=== PATIENT | female | born 1975 | race Caucasian/White ===

== ENCOUNTER 2016-12-31 05:57 | Emergency (ER) | payer OTHER ==
--- NOTE | 2016-12-31 07:35 | RAD ---
EXAMINATION : CLAVICLE RIGHT HISTORY: Right clavicle pain. Injury. COMPARISONS: 09/16/2014 FINDINGS: No displaced fracture is identified. The acromioclavicular and sternoclavicular joint spaces are maintained. No soft tissue abnormality seen. IMPRESSION: Negative two-view right clavicle.
== END 2016-12-31 07:12 | disposition home or self-care (01) ==
LOC: ED 05:57
DX: S49.91XA Unspecified injury of right shoulder and upper arm, initial encounter (principal); S29.011A Strain of muscle and tendon of front wall of thorax, initial encounter; W01.0XXA Fall on same level from slipping, tripping and stumbling without subsequent striking against object, initial encounter; Y93.9 Activity, unspecified; Y92.9 Unspecified place or not applicable